=== PATIENT | male | born 1995 | race Hispanic/Latino ===

== ENCOUNTER 2024-01-14 08:42 | Day surgery (SDC) | payer OTHER, SELFPAY ==
[2024-01-14] MEDS ORDERED: EPINEPHrine 1 MG/ML VIAL ONE (10:02)
[2024-01-14] MEDS ORDERED: Bupivacaine 0.25% HCL 30 ML VIAL ONE (10:03)
[2024-01-14] MEDS ORDERED: Lidocaine 1% PF 5 ML VIAL ONE (10:16)
[2024-01-14] MEDS ORDERED: Midazolam HCl 2 mg/2 ml Vial ONE ×2 (10:16→10:19)
[2024-01-14] MEDS ORDERED: Rocuronium Bromide 10 MG/ML (10ML VIAL) ONE (10:16)
[2024-01-14] MEDS ORDERED: Dexamethasone 20 MG/5 ML VIAL ONE (10:16)
[2024-01-14] MEDS ORDERED: fentaNYL PF 100 MCG/2 ML SYRINGE ONE ×2 (10:16→10:38)
[2024-01-14] MEDS ORDERED: PROPOFOL 20 ML ONE (10:16)
[2024-01-14] MEDS ORDERED: SUGAMMADEX SODIUM 200 MG/2 ML VIAL ONE (10:16)
[2024-01-14] MEDS ORDERED: Ondansetron PF 4 MG/2 ML Vial ONE (10:16)
[2024-01-14] MEDS ORDERED: PHENYLEPHRINE-NS 100 MCG/ML 10 ML SYRINGE ONE (10:43)
[2024-01-14] MEDS ORDERED: CEFAZOLIN 1 GM VIAL ONE (10:47)
== END 2024-01-14 14:03 | disposition home or self-care (01) ==
LOC: SDC/OP 08:42
PROVIDERS: ATTEND Surgery
PROC: 0DTJ4ZZ Resection of Appendix, Percutaneous Endoscopic Approach (ICD-10-PCS; principal; 2024-01-14)
DX: K35.80 Unspecified acute appendicitis (principal); K38.8 Other specified diseases of appendix
CPT/HCPCS: 88304; A4649; J0171; J0665; J0690; J1100; J2250; J2405; J2704